=== PATIENT | male | born 1975 | race Caucasian/White ===

== ENCOUNTER → 2018-10-16 | Outpatient (CLI) | payer OTHER ==
[2018-10-16 14:05] LABS: ABSOLUTE EOSINOPHILS # (AUTO) 0.1 10^3/uL (0.0-0.6); ABSOLUTE LYMPHOCYTES (AUTO) 3.3 10^3/uL (0.5-4.7); ABSOLUTE MONOCYTES (AUTO) 0.5 10^3/uL (0.1-1.4); ABSOLUTE NEUT (AUTO) 4.3 10^3/uL (1.7-8.2); BASOPHILS % (AUTO) 0.6 % (0-2); EOSINOPHILS % (AUTO) 1.2 % (0-6); HEMATOCRIT 43.7 % (37.9-51.0); MEAN CORPUSCULAR HEMOGLOBIN 31.3 pg (27.0-33.4); MEAN CORPUSCULAR HGB CONC 34.4 g/dL (32.0-36.0); MEAN CORPUSCULAR VOLUME 91 fl (80-97); PLATELET COUNT 277 10^3/uL (150-450); RED BLOOD COUNT 4.81 10^6/uL (4.35-5.55); RED CELL DISTRIBUTION WIDTH 12.7 % (11.5-14.0); SEGMENTED NEUTROPHILS % (AUTO) 52.2 % (42-78); TOTAL CELLS COUNTED % (AUTO) 100 %; WHITE BLOOD COUNT 8.2 10^3/uL (4.0-10.5)
[2018-10-16 14:07] LABS: APPEARANCE,URINE CLEAR; BILIRUBIN,URINE NEGATIVE (NEGATIVE); COLOR,URINE COLORLESS; GLUCOSE, URINE NEGATIVE (NEGATIVE); KETONES,URINE NEGATIVE (NEGATIVE); LEUKOCYTE ESTERASE,URINE NEGATIVE (NEGATIVE); NITRITE,URINE NEGATIVE (NEGATIVE); PROTEIN,URINE NEGATIVE (NEGATIVE); URINE SPECIFIC GRAVITY 1.002; UROBILINOGEN,URINE NEGATIVE mg/dL (<2.0)
[2018-10-16 14:29] LABS: ALBUMIN 4.7 g/dL (3.5-5.0); ANION GAP 8 (5-19); BLOOD UREA NITROGEN 22 mg/dL (7-20); CALCIUM 9.8 mg/dL (8.4-10.2); CARBON DIOXIDE 30 mmol/L (22-30); CHLORIDE 104 mmol/L (98-107); GLUCOSE 90 mg/dL (75-110); POTASSIUM 4.9 mmol/L (3.6-5.0); SODIUM 141.9 mmol/L (137-145)
[2018-10-17 11:37] LABS: CREATININE URINE 23.1 mg/dL (Not Estab.)
[2018-10-17 19:09] LABS: MICROALBUMIN URINE <3.0 ug/mL (Not Estab.)
[2018-10-19 10:54] LABS: 24 HOUR URINE PROTEIN RESULT 210 mg/day (42-225); URINE PROTEIN 11.1 mg/dL (<12)
[2018-10-19 17:24] LABS: CREATININE 1.61 mg/dL (0.52-1.25)
[2018-10-19 17:28] LABS: URINE CREATININE 112.7 mg/dL (22-328)
== END ==
LOC: LAB 13:48
PROVIDERS: ATTEND Internal Medicine Nephrology
DX: N18.9 Chronic kidney disease, unspecified (principal); K21.9 Gastro-esophageal reflux disease without esophagitis
CPT/HCPCS: 36415; 80069; 81001; 82043; 82306; 82570; 82575; 83970; 84156; 85025

== ENCOUNTER → 2018-10-16 | Outpatient (CLI) | payer OTHER ==
--- NOTE | 2018-10-16 15:14 | RADIOLOGY REPORT (SQ) ---
EXAM DESCRIPTION: [employer] COMPLETED DATE/TIME: 10/16/2018 3:03 pm REASON FOR STUDY: (N18.9)CHRONIC KIDNEY DISEASE, UNSPECIFIED N18.9 CHRONIC KIDNEY DISEASE, UNSPECIF IED COMPARISON: None. TECHNIQUE: Dynamic and static grayscale images acquired of the kidneys and bladder and recorded on P ACS. Additional selected color Doppler and spectral images recorded. LIMITATIONS: None. FINDINGS: RIGHT KIDNEY: Normal size, 11.6 cm in length. Mild cortical thinning and increased ortiz ical echogenicity. No solid or suspicious masses. No hydronephrosis. No calcifications. LEFT KIDNEY: Normal size, 10.5 cm in length. Mild cortical thinning and increased cortical echogen icity. No solid or suspicious masses. No hydronephrosis. No calcifications. BLADDER: No masses. Ureteral jets are identified OTHER FINDINGS: No other significant finding. IMPRESSION: No hydronephrosis. TECHNICAL DOCUMENTATION: JOB ID: [id number] [employer]- All Rights Reserved Reading location - IP/workstation name: [email or web address]
== END ==
LOC: RAD 14:51
PROVIDERS: ATTEND Internal Medicine Nephrology
DX: N18.9 Chronic kidney disease, unspecified (principal)
CPT/HCPCS: 76775

== ENCOUNTER → 2019-02-16 | Outpatient (CLI) | payer OTHER ==
[2019-02-16 13:53] LABS: ANION GAP 14 (5-19); BLOOD UREA NITROGEN 19 mg/dL (7-20); CALCIUM 9.8 mg/dL (8.4-10.2); CARBON DIOXIDE 25 mmol/L (22-30); CHLORIDE 104 mmol/L (98-107); GLUCOSE 105 mg/dL (75-110); POTASSIUM 4.1 mmol/L (3.6-5.0)
== END ==
LOC: LAB 13:17
PROVIDERS: ATTEND Internal Medicine Nephrology
DX: N18.9 Chronic kidney disease, unspecified (principal); K21.9 Gastro-esophageal reflux disease without esophagitis
CPT/HCPCS: 36415; 80048

== ENCOUNTER → 2019-06-17 | Outpatient (CLI) | payer OTHER | LOC: LAB 10:24 | PROVIDERS: ATTEND Internal Medicine Nephrology | DX: I12.9 Hypertensive chronic kidney disease with stage 1 through stage 4 chronic kidney disease, or unspecified chronic kidney disease (principal); N18.9 Chronic kidney disease, unspecified; Z53.8 Procedure and treatment not carried out for other reasons ==

== ENCOUNTER → 2019-06-21 | Outpatient (CLI) | payer OTHER ==
[2019-06-21 10:26] LABS: ABSOLUTE EOSINOPHILS # (AUTO) 0.1 10^3/uL (0.0-0.6); ABSOLUTE LYMPHOCYTES (AUTO) 2.3 10^3/uL (0.5-4.7); ABSOLUTE MONOCYTES (AUTO) 0.3 10^3/uL (0.1-1.4); ABSOLUTE NEUT (AUTO) 4.5 10^3/uL (1.7-8.2); BASOPHILS % (AUTO) 0.4 % (0-2); EOSINOPHILS % (AUTO) 1.2 % (0-6); HEMATOCRIT 42.5 % (37.9-51.0); HEMOGLOBIN 15.1 g/dL (13.5-17.0); LYMPHOCYTES % (AUTO) 31.6 % (13-45); MEAN CORPUSCULAR HEMOGLOBIN 32.4 pg (27.0-33.4); MEAN CORPUSCULAR HGB CONC 35.5 g/dL (32.0-36.0); MEAN CORPUSCULAR VOLUME 91 fl (80-97); MONOCYTES % (AUTO) 4.4 % (3-13); PLATELET COUNT 181 10^3/uL (150-450); RED BLOOD COUNT 4.66 10^6/uL (4.35-5.55); RED CELL DISTRIBUTION WIDTH 12.9 % (11.5-14.0); SEGMENTED NEUTROPHILS % (AUTO) 62.4 % (42-78); TOTAL CELLS COUNTED % (AUTO) 100 %; WHITE BLOOD COUNT 7.3 10^3/uL (4.0-10.5)
[2019-06-21 10:54] LABS: ALBUMIN 4.6 g/dL (3.5-5.0); ANION GAP 11 (5-19); BLOOD UREA NITROGEN 16 mg/dL (7-20); CALCIUM 9.6 mg/dL (8.4-10.2); CARBON DIOXIDE 28 mmol/L (22-30); CHLORIDE 103 mmol/L (98-107); GLUCOSE 110 mg/dL (75-110); PHOSPHORUS 2.5 mg/dL (2.5-4.5); POTASSIUM 4.2 mmol/L (3.6-5.0)
[2019-06-21 11:07] LABS: CREATININE 1.49 mg/dL (0.52-1.25)
[2019-06-21 11:17] LABS: URINE PROTEIN 10.1 mg/dL (<12)
[2019-06-21 11:25] LABS: URINE CREATININE 102.4 mg/dL (22-328)
[2019-06-21 11:26] LABS: 24 HOUR URINE PROTEIN RESULT 257 mg/day (42-225)
== END ==
LOC: LAB 10:04
PROVIDERS: ATTEND Internal Medicine Nephrology
DX: I12.9 Hypertensive chronic kidney disease with stage 1 through stage 4 chronic kidney disease, or unspecified chronic kidney disease (principal); N18.9 Chronic kidney disease, unspecified; K21.9 Gastro-esophageal reflux disease without esophagitis
CPT/HCPCS: 36415; 80069; 82306; 82575; 83970; 84156; 85025

== ENCOUNTER → 2020-01-10 | Outpatient (CLI) | payer OTHER ==
[2020-01-10 10:16] LABS: APPEARANCE,URINE CLEAR; BILIRUBIN,URINE NEGATIVE (NEGATIVE); COLOR,URINE STRAW; GLUCOSE, URINE NEGATIVE (NEGATIVE); KETONES,URINE NEGATIVE (NEGATIVE); LEUKOCYTE ESTERASE,URINE NEGATIVE (NEGATIVE); NITRITE,URINE NEGATIVE (NEGATIVE); PROTEIN,URINE NEGATIVE (NEGATIVE); URINE SPECIFIC GRAVITY 1.008; UROBILINOGEN,URINE NEGATIVE mg/dL (<2.0)
[2020-01-10 10:33] LABS: ANION GAP 8 (5-19); BLOOD UREA NITROGEN 18 mg/dL (7-20); CALCIUM 9.8 mg/dL (8.4-10.2); CARBON DIOXIDE 29 mmol/L (22-30); CHLORIDE 103 mmol/L (98-107); GLUCOSE 105 mg/dL (75-110); POTASSIUM 4.4 mmol/L (3.6-5.0)
[2020-01-11 13:37] LABS: CREATININE URINE 68.9 mg/dL (Not Estab.); MICROALBUMIN URINE 4.7 ug/mL (Not Estab.)
== END ==
LOC: OD 09:11
PROVIDERS: ATTEND Internal Medicine Nephrology
DX: I12.9 Hypertensive chronic kidney disease with stage 1 through stage 4 chronic kidney disease, or unspecified chronic kidney disease (principal); N18.9 Chronic kidney disease, unspecified
CPT/HCPCS: 36415; 80048; 81001; 82043; 82570

== ENCOUNTER → 2020-02-25 | Outpatient (CLI) | payer OTHER ==
[2020-02-25 09:40] LABS: APPEARANCE,URINE CLEAR; BILIRUBIN,URINE NEGATIVE (NEGATIVE); COLOR,URINE STRAW; GLUCOSE, URINE NEGATIVE (NEGATIVE); KETONES,URINE NEGATIVE (NEGATIVE); LEUKOCYTE ESTERASE,URINE NEGATIVE (NEGATIVE); NITRITE,URINE NEGATIVE (NEGATIVE); PROTEIN,URINE NEGATIVE (NEGATIVE); URINE SPECIFIC GRAVITY 1.009; UROBILINOGEN,URINE NEGATIVE mg/dL (<2.0)
[2020-02-25 10:01] LABS: ANION GAP 10 (5-19); BLOOD UREA NITROGEN 17 mg/dL (7-20); CALCIUM 9.6 mg/dL (8.4-10.2); CARBON DIOXIDE 27 mmol/L (22-30); CHLORIDE 103 mmol/L (98-107); GLUCOSE 114 mg/dL (75-110)
[2020-02-26 17:36] LABS: CREATININE URINE 91.2 mg/dL (Not Estab.); MICROALBUMIN URINE 5.1 ug/mL (Not Estab.)
--- OUTSIDE RECORDS SUMMARY | 2020-02-28 09:37 | XMS REPORT ---
:1975 Author Organization [facility] Address [facility] [address] [place] [address] Care Team Providers Name Role Phone Carlee Morris Primary Care Physician Unavailable Vladimir CROWE Attending Clinician Unavailable Allergies, Adverse Reactions, Alerts This patient has no known allergies or adverse reactions. Medications Ordered Filled Start Stop Current Ordering Indication Dosage Frequency Signature Comments Components Medication Medication Date Date Medication? Clinician (SIG) Name Name Famotidine No Annabelle Famotidine 40 MG Oral 7-23 Vladimir CROWE 40 MG Oral Tablet 07:55: Tablet 34 Take 1 tablet by mouth daily Quantity: 90 Refills: 0 Annabelle Gilbert MD Start : 0Active predniSONE Yes 0 predniSONE 5 MG Oral 6-17 5 MG Oral Tablet 00:00: Tablet 00 TAKE DIRECTED Refills: 0 ,,, Start : 0Active Simvastatin 2018-04 Yes 0 Simvastati 40 MG Oral 1-22 n 40 MG Tablet 00:00: Oral 00 Tablet TAKE 1 TABLET AT BEDTIME. Refills: 0 ,,, Start : 9Active Famotidine 2018-04 Yes Annabelle Famotidine 40 MG Oral 1-14 Vladimir CROWE 40 MG Oral Tablet 00:00: Tablet 00 Take 1 tablet by mouth daily Quantity: 90 Refills: 1 Annabelle Gilbert MD Start : 9Active Losartan 2018-04 Yes 0 1 QD Losartan Potassium 1-12 Potassium 25 MG Oral 00:00: 25 MG Oral Tablet 00 Tablet TAKE 1 TABLET DAILY. Refills: 0 ,,, Start : 9Active 30 Tablet Pack Rizatriptan Yes 0 Q2H Rizatripta Benzoate 10 5-06 n Benzoate MG Oral 00:00: 10 MG Oral Tablet 00 Tablet TAKE 1 TABLET AT ONSET OF HEADACHE. MAY REPEAT EVERY 2 HOURS NEEDED. MAXIMUM 3 TABLETS IN 24 HOURS. Refills: 0 ,,, Start : 17-Aug-2018 Active gabapentin No gabapentin 300 mg 300 mg capsule qd capsule qd lidocaine 5 No lidocaine % topical 5 % patch PRN topical patch PRN pantoprazol No pantoprazo e 40 mg le 40 mg tablet,cb tablet,del yed release ayed qd release qd ranitidine No ranitidine 300 mg 300 mg tablet PRN tablet PRN rizatriptan No rizatripta 10 mg n 10 mg tablet tablet tizanidine No tizanidine 2 mg tablet 2 mg qd tablet qd Zanaflex 4 No 1 QID Zanaflex 4 mg tablet mg tablet Take 1 Take 1 tablet 4 tablet 4 times a day times a by oral day by route as oral route needed. as needed. tizanidine No tizanidine 4 mg tablet 4 mg TAKE 1 tablet TABLET BY TAKE 1 MOUTH FOUR TABLET BY TIMES DAILY MOUTH FOUR NEEDED TIMES DAILY NEEDED Valium 5 mg No Valium 5 tablet Take mg tablet one tablet Take one 30 minutes tablet 30 prior to minutes procedure prior to and one procedure tablet at and one time of. tablet at time of. diazepam 5 No diazepam 5 mg tablet mg tablet Take one Take one tablet 30 tablet 30 minutes minutes prior to prior to procedure procedure and one and one tablet at tablet at time of. time of. famotidine No famotidine 40 mg 40 mg tablet tablet Takes as Takes as directed directed finasteride No finasterid 5 mg tablet e 5 mg Takes as tablet directed Takes as directed losartan 25 No losartan mg tablet 25 mg Takes as tablet directed Takes as directed simvastatin No simvastati 40 mg n 40 mg tablet tablet Takes as Takes as directed directed Maxalt 10 No Maxalt 10 mg tablet mg tablet Take by Take by oral route. oral route. zolpidem ER No zolpidem 12.5 mg ER 12.5 mg tablet,exte tablet,ext nded ended release,mul release,mu tiphase ltiphase polymyxin B No polymyxin sulfate B sulfate 10,000 10,000 unit-trimet unit-trime hoprim 1 thoprim 1 mg/mL eye mg/mL eye drops drops prednisone No prednisone 5 mg tablet 5 mg tablet Problems Condition Condition Condition Status Onset Resolution Last Treatin g Comments Name Details Category Date Date Treatment Clinician Date Low back Low Back Problem Active pain Pain 10-13 00:00: 00 Abdominal Abdominal Problem Active pain, pain, epigastric epigastric Chronic Chronic Problem Active kidney kidney disease, disease, stage I stage I Esophageal Esophageal Problem Active reflux reflux Esophagitis Esophagitis Problem Active Palpitation Palpitation Problem Active s s Lightheaded Lightheaded Problem Active ness ness Rectal Rectal Problem Active bleeding bleeding Change in Change in Problem Active stool stool habits habits Procedures Procedure Date / Time Performed Performing Clinician Devic e CMP(Complete Metabolic Panel) 2020-02-14 00:00:00 Ferritin 2020-02-14 00:00:00 lumbar radiofrequency lesioning 2019-10-07 00:00:00 (PROC) facet joint injection, lumbar 2019-06-23 00:00:00 (PROC) peripheral nerve block (PROC) 2018-11-20 00:00:00 LOW BACK DISK SURGERY 2016-10-12 00:00:00 Thumb Surgery 2015-10-13 00:00:00 SHOULDER ARTHROSCOPY DX 2015-10-13 00:00:00 History of Shoulder surgery History of Back surgery History of Lower back surgery Results Test Description Test Time Test Comments Text Results Atomic Results Result Comments CBC 2020-02-14 13:44:00 Test Item Value Reference Range Comments White Blood Cell (test code = White Blood Cell) 9.7 K/uL 3.5-11.1 Red Blood Cell (test code = Red Blood Cell) 4.44 {M/uL} 4.27 -5.49 Hemoglobin (test code = Hemoglobin) 14.5 g/dL 12.9-16.1 Hematocrit (test code = Hematocrit) 41 % 38-47 Mean Corpuscular Volume (test code = Mean Corpuscular Volume) 93 .0 fL 79.0-95.0 Mean Corpuscular Hemoglobin (test code = Mean Corpuscular 32.7 p g/mL 27.0-33.0 Hemoglobin) Mean Corpuscular Hemoglobin Concentration (test code = Mean 35.1 g/dL 33.5-35.5 Corpuscular Hemoglobin Concentration) Red Cell Distribution Width (test code = Red Cell 11.9 % 12.0-15.0 Distribution Width) Platelet (test code = Platelet) 211 K/uL 130-353 Mean Platelet Volume (test code = Mean Platelet Volume) 9.3 fL 7.5-10.7 Neutrophil Count, absolute (test code = Neutrophil Count, 6.0 K/ uL 1.9-7.2 absolute) Neutrophil Count Percentage (test code = Neutrophil Count 61.9 % 43.0-72.0 Percentage) Lymphocyte Count, absolute (test code = Lymphocyte Count, 3.1 K/ uL 1.1-2.7 absolute) Lymphocyte Count Percentage (test code = Lymphocyte Count 31.6 % 17.0-44.0 Percentage) Monocyte Count, absolute (test code = Monocyte Count, 0.5 K/uL 0.3-0.8 absolute) Monocyte Count Percentage (test code = Monocyte Count 5.0 % 4.5-12.4 Percentage) Eosinophil Count, absolute (test code = Eosinophil Count, 0.1 K/ uL 0.0-0.5 absolute) Eosinophil Count Percentage (test code = Eosinophil Count 0.9 % 0.7-7.8 Percentage) Basophil Count, absolute (test code = Basophil Count, 0.0 K/uL 0.0-0.1 absolute) Basophil Count Percentage (test code = Basophil Count 0.3 % 0.2-1.1 Percentage) Nucleated Red Blood Cell, absolute (test code = Nucleated Re d 0.00 K/uL 0.00-0.00 Blood Cell, absolute) Nucleated Red Blood Cell, percentage (test code = Nucleated 0.00 % 0.00-0.00 Red Blood Cell, percentage) CMP(Complete Metabolic Panel)2020-02-14 13:44:00 Test Item Value Reference Range Comments Glucose (test code = Glucose) 101 mg/dL 74-106 Sodium (test code = Sodium) 142 mmol/L 135-145 Potassium (test code = Potassium) 3.8 mmol/L 3.5-5.3 Chloride (test code = Chloride) 103 mmol/L 98-107 CO2 (test code = CO2) 28 mmol/L 22-30 Creatinine, serum (test code = Creatinine, 1.40 mg/dL 0.10- 1.25 serum) Glomerular Filtration Rate (test code = 58 mL/min/1.7 >60 Glomerular Filtration Rate) Glomerular Filtration Rate AA (test code = >60 >60 Glomerular Filtration Rate AA) Blood Urea Nitrogen (test code = Blood Urea 14 mg/dL 9-20 Nitrogen) Calcium (test code = Calcium) 9.3 mg/dL 8.4-10.5 Phosphorus (test code = Phosphorus) 3.2 mg/dL 2.5-4.5 Total Protein (test code = Total Protein) 7.6 g/dL 6.3-8. 2 Albumin (test code = 49869-9) 4.9 g/dL 3.5-5.0 Total Bilirubin (test code = Total Bilirubin) 0.4 mg/dL 0. 2-1.3 Bilirubin, unconj (test code = Bilirubin, 0.3 mg/dL 0.0-1. 1 unconj) Bilirubin, Direct (test code = Bilirubin, 0.1 mg/dL 0.0-0. 4 Direct) Alkaline Phosphatase (test code = Alkaline 85 U/L 20-15 0 Phosphatase) Alanine Transaminase (test code = Alanine 39 U/L 0-50 Transaminase) Aspartate Aminotransferase (test code = 37 U/L 3-36 Aspartate Aminotransferase) [id number] 13:44:00 Test Item Value Reference Range Comments Ferritin (test code = Ferritin) 206.0 ng/mL 17.9-464.0 Assessments Condition Name Status Diagnosis Date Treating Clinici an Chronic pain syndrome Active 2019-12-10 01:26:59 Low back pain Active 2019-11-29 07:54:55 Degeneration of lumbar intervertebral Active 2019-12-10 01:26:59 disc Lumbar facet joint pain Active 2019-12-10 01:26:59 Lumbosacral spondylosis without Active 2019-12-10 01:26 :59 myelopathy Lumbosacral spondylosis without Active 2019-10-07 09:08 :05 myelopathy Chronic pain syndrome Active 2019-10-07 09:08:05 Low back pain Active 2019-10-07 07:54:52 Degeneration of lumbar intervertebral Active 2019-10-07 09:08:05 disc Lumbar facet joint pain Active 2019-10-07 09:08:05 Chronic pain syndrome Active 2019-06-23 09:21:45 Low back pain Active 2019-06-23 09:21:45 Degeneration of lumbar intervertebral Active 2019-06-23 09:21:45 disc Lumbar facet joint pain Active 2019-06-23 09:21:45 Lumbosacral spondylosis without Active 2019-06-23 09:21 :45 myelopathy Low back pain Active 2019-04-22 08:35:09 Degeneration of lumbar intervertebral Active 2019-04-22 08:53:26 disc Lumbosacral spondylosis Active 2019-04-22 08:53:26 Lumbosacral spondylosis without Active 2019-04-22 08:53 :26 myelopathy Arthropathy of lumbar facet joint Active 2019-04-22 09: 03:30 Low back pain Active 2018-12-30 07:54:55 Lumbosacral spondylosis without Active 2018-12-30 11:49 :39 myelopathy Arthropathy of lumbar facet joint Active 2018-11-25 08: 16:20 Degeneration of lumbar intervertebral Active 2018-11-25 08:16:20 disc Lumbosacral spondylosis without Active 2018-11-25 08:16 :20 myelopathy Sacroiliac disorder Active 2018-11-25 08:16:20 Spondylosis without myelopathy Active 2018-11-25 08:16: 48 Low back pain Active 2018-11-20 09:33:02 Degeneration of lumbar intervertebral Active 2018-11-20 09:57:42 disc Lumbar disc prolapse with radiculopathy Active 09:57:42 Lumbosacral spondylosis Active 2018-11-20 09:57:42 Spinal stenosis of lumbar region Active 2018-11-20 09:5 7:42 Left-sided piriformis syndrome Active 2018-11-20 09:57: 42 Lumbosacral spondylosis without Active 2018-11-20 09:57 :42 myelopathy Degeneration of lumbar intervertebral Active 2018-10-21 13:48:29 disc Lumbar disc prolapse with radiculopathy Active 13:48:35 Lumbosacral spondylosis Active 2018-10-21 13:55:49 Spinal stenosis of lumbar region Active 2018-10-21 13:5 6:20 Left-sided piriformis syndrome Active 2018-10-21 14:07: 21 Lumbosacral spondylosis without Active 2018-10-21 14:08 :43 myelopathy Esophageal reflux Active Palpitations Active Lightheadedness Active Esophagitis Active Lightheadedness Active Lightheadedness Active Chronic kidney disease, stage I Active Palpitations Active Esophageal reflux Active Esophagitis Active Palpitations Active Lightheadedness Active Rectal bleeding Active Abdominal pain, epigastric Active Change in stool habits Active Esophagitis Active Esophageal reflux Active Chronic kidney disease, stage I Active Encounters Start End Encounter Admission Attending Care Care Encounter Date/Time Date/Time Type Type Clinicians Facility Department ID 2020-02-14 2020-02-14 Appointment [facility] [id number] 13:30:00 13:30:00 ; Annabelle Gilbert MD 2019-11-29 2019-11-29 Marco Gipson [id number] 00:00:00 00:00:00 Mac, Surgical Surgical [id number] MD: Jenn [address] [place] [address], Ph. [phone] 2019-10-07 2019-10-07 Marco Ariaseret [id number] 00:00:00 00:00:00 Mac, Surgical Surgical [id number] MD: Jenn [address] [place] [address], Ph. [phone] 2019-10-06 2019-10-06 [facility] [id number] 16:00:00 16:00:00 ; Joselyn Goldsmith MD|FAC|R S 2019-08-25 2019-08-25 [facility] [id number] 13:30:00 13:30:00 ; Annabelle Gilbert MD 2019-06-23 2019-06-23 Marco Dixont [id number] 00:00:00 00:00:00 Mac, Surgical Surgical [id number] MD: Jenn [address] [place] [address], Ph. [phone] 2019-05-13 2019-05-13 [facility] [id number] 13:00:00 13:00:00 ; Miquel Broderick ANP-Michaela 2019-04-22 2019-04-22 Jair Gipson [id number] 00:00:00 00:00:00 Stephane DO: Surgical Surgical [id number] [address] [facility] [place] [address], Ph. 2019-02-25 2019-02-25 [facility] [id number] 16:00:00 16:00:00 ; Annabelle Gilbert MD 2019-02-05 2019-02-05 Appointment [facility] [id number] 11:30:00 11:30:00 ; Miquel Broderick ANP-C 2019-01-04 2019-01-04 [facility] [id number] 13:45:00 13:45:00 ; Joselyn Goldsmith MD|FACC|R S 2018-12-30 2018-12-30 Jair Gipson [place] [id number] 00:00:00 00:00:00 Stephane DO: Surgical Surgical [id number] [address] [facility] [address], Ph. 2018-11-25 2018-11-25 Jair [place] [id number] 00:00:00 00:00:00 Stephane DO: Surgical Surgical [id number] [address] [facility] [address], Ph. 2018-11-20 2018-11-20 Jair [place] [id number] 00:00:00 00:00:00 Stephane DO: Surgical Surgical [address] [address] [place] [address], Ph. 2018-10-30 2018-10-30 Appointment [facility] [id number] 13:00:00 13:00:00 ; [facility] 2018-10-21 2018-10-21 Jair [place] [id number] 00:00:00 00:00:00 Stephane DO: Surgical Surgical [id number] [address] [place] [address], Ph. [phone] 2018-10-14 2018-10-14 Appointment [facility] [id number] 13:00:00 13:00:00 ; Joselyn Goldsmith MD|FACC|R S 2018-07-30 2018-07-30 Appointment BEATRIZ Gilbert [facility] [id number] 13:15:00 13:15:00 ; Annabelle Gilbert MD 2018-05-15 2018-05-15 Appointment JAMAR GilbertSHARITA [facility] [id number] 14:00:00 14:00:00 ; Annabelle Gilbert MD 2017-11-10 2017-11-10 Appointment BEATRIZ Gilbert [facility] [id number] 13:45:00 13:45:00 ; Annabelle Gilbert MD Immunizations Ordered Immunization Filled Immunization Date Status Commen ts Refusal Reason Name Name influenza, 2018-01-12 Completed injectable, 00:00:00 quadrivalent Social History Smoking Status Start Date Stop Date Never smoked tobacco (finding) Vital Signs Vital Name Observation Time Observation Value Comments BP Diastolic 2019-11-29 00:00:00 82 mm[Hg] Height 2019-11-29 00:00:00 70 [in_i] BP Systolic 2019-11-29 00:00:00 119 mm[Hg] Height 2019-10-07 00:00:00 70 [in_i] BP Systolic 2019-10-07 00:00:00 124 mm[Hg] BP Diastolic 2019-10-07 00:00:00 77 mm[Hg] BP Diastolic 2019-06-23 00:00:00 98 mm[Hg] Height 2019-06-23 00:00:00 70 [in_i] BP Systolic 2019-06-23 00:00:00 156 mm[Hg] Height 2019-04-22 00:00:00 70 [in_i] BMI (Body Mass Index) 2019-04-22 00:00:00 33.3 kg/m2 Body Weight 2019-04-22 00:00:00 232 [lb_av] BP Diastolic 2018-12-30 00:00:00 90 mm[Hg] Height 2018-12-30 00:00:00 70 [in_i] BMI (Body Mass Index) 2018-12-30 00:00:00 33.3 kg/m2 BP Systolic 2018-12-30 00:00:00 138 mm[Hg] Body Weight 2018-12-30 00:00:00 232 [lb_av] BP Diastolic 2018-11-25 00:00:00 86 mm[Hg] Height 2018-11-25 00:00:00 70 [in_i] BMI (Body Mass Index) 2018-11-25 00:00:00 32.3 kg/m2 BP Systolic 2018-11-25 00:00:00 137 mm[Hg] Body Weight 2018-11-25 00:00:00 225 [lb_av] BP Diastolic 2018-11-20 00:00:00 93 mm[Hg] Height 2018-11-20 00:00:00 70 [in_i] BMI (Body Mass Index) 2018-11-20 00:00:00 33.4 kg/m2 BP Systolic 2018-11-20 00:00:00 153 mm[Hg] Body Weight 2018-11-20 00:00:00 233 [lb_av] BP Diastolic 2018-10-21 00:00:00 86 mm[Hg] Height 2018-10-21 00:00:00 70 [in_i] BMI (Body Mass Index) 2018-10-21 00:00:00 33.4 kg/m2 BP Systolic 2018-10-21 00:00:00 131 mm[Hg] Body Weight 2018-10-21 00:00:00 233 [lb_av] Systolic blood pressure 2020-02-14 13:24:00 126 mm[Hg] Diastolic blood pressure 2020-02-14 13:24:00 78 mm[Hg] Body height 2020-02-14 13:24:00 70 [in_us] Weight 2020-02-14 13:24:00 228 [lb_av] Body mass index (BMI) [Ratio] 2020-02-14 13:24:00 32.71 kg/m2 Body temperature 2020-02-14 13:24:00 95.5 [degF] Heart Rate 2020-02-14 13:24:00 101 /min Respiratory rate 2020-02-14 13:24:00 16 /min O2 SAT 2020-02-14 13:24:00 98 % Systolic blood pressure 2019-10-06 15:38:00 128 mm[Hg] Diastolic blood pressure 2019-10-06 15:38:00 86 mm[Hg] Body height 2019-10-06 15:38:00 70 [in_us] Weight 2019-10-06 15:38:00 229 [lb_av] Body mass index (BMI) [Ratio] 2019-10-06 15:38:00 32.86 kg/m2 Body temperature 2019-10-06 15:38:00 97.9 [degF] Heart Rate 2019-10-06 15:38:00 66 /min Hospital Discharge Instructions NameDatesDetailsInstructions not documented1. Chronic pain syndrome 2. Low back pain 3. Degeneration of lumbar intervertebral disc 4. Lumbar facet joint pain 5. Lumbosacral spondylosis without myelopathy Discussion Note: None recorded. Patient educational handouts: No information available.1. Chronic pain syndrome 2. Low back pain 3. Degeneration of lumbar intervertebral disc 4. Lumbar facet joint pain lumbar radiofrequency lesioning (PROC) - Bilat RFA L3-S1/local/tb scheduled for 11/29/19 5. Lumbosacral spondylosis without myelopathy Discussion Note: None recorded. Patient educational handouts: No information available.1. Chronic pain syndrome 2. Low back pain 3. Degeneration of lumbar intervertebral disc 4. Lumbar facet joint pain facet joint injection, lumbar (PROC) - Bilateral Facet L3-S1 facet joint injection, lumbar (PROC) - CHHAYA FACET L3-S 1/LOCAL/DC 5. Lumbosacral spondylosis without myelopathy Discussion Note: None recorded. Patient educational handouts: No information available.1. Low back pain getting back to normal after low back pain: care instructions 2. Degeneration of lumbar intervertebral disc 3. Lumbosacral spondylosis 4. Lumbosacral spondylosis without myelopathy5. Arthropathy of lumbar facet joint Discussion Note: None recorded.1. Low back pain 2. Lumbosacral spondylosis without myelopathy Discussion Note: None recorded. Patient educational handouts: No information available.1. Degeneration of lumbar intervertebral disc 2. Lumbar disc prolapse with radiculopathy 3. Lumbosacral spondylosis 4. Spinal stenosis of lumbar region 5. Left-sided piriformis syndrome 6. Lumbosacral s pondylosis without myelopathy Discussion Note: None recorded. Patient educational handouts: No information available."
== END ==
LOC: OD 08:34
PROVIDERS: ATTEND Internal Medicine Nephrology
DX: I12.9 Hypertensive chronic kidney disease with stage 1 through stage 4 chronic kidney disease, or unspecified chronic kidney disease (principal); N18.9 Chronic kidney disease, unspecified
CPT/HCPCS: 36415; 80048; 81001; 82043; 82570